=== PATIENT | male | born 1965 | race Caucasian/White ===

== ENCOUNTER 2023-02-09 09:35 | Outpatient (CLI) | payer BC ==
[2023-02-09] VITALS (17 sets, daily range): BP systolic 124–156; BP diastolic 54–105
== END 2023-02-09 23:59 | disposition home or self-care (01) ==
LOC: CARD DIAG 09:35
PROVIDERS: ATTEND Internal Medicine Interventional Cardiology
DX: R55 Syncope and collapse (principal)
CPT/HCPCS: 93660